=== PATIENT | female | born 1975 | race Hispanic/Latino ===

== ENCOUNTER → 2023-10-03 11:46 | Outpatient (REF) | payer OTHER, SELFPAY ==
[2023-10-03 12:45] LABS: % Basophils 0.7 % (0-2); % Eosinophils 0.8 % (0-6); % Immature Granulocytes 0.6 % (0-0.5); % Lymphocytes 45.5 % (20.5-51.1); % Monocytes 6.8 % (1.7-9.3); % Neutrophils 45.6 % (42.2-75.2); Absolute Basophils 0.1 10^3/uL (0-0.2); Absolute Eosinophils 0.1 10^3/uL (0-0.7); Absolute Immature Granulocytes 0.1 10^3/uL (0-0.05); Absolute Lymphocytes 3.9 10^3/uL (1.2-3.4); Absolute Monocytes 0.6 10^3/uL (0.1-0.6); Absolute Neutrophils 3.9 10^3/uL (1.4-6.5); Hematocrit 33.4 % (37.0-47.0); Hemoglobin 10.1 g/dL (12.0-16.0); Mean Corp Hgb Conc. 30.2 g/dL (33.0-37.0); Mean Corpuscular Hgb 19.8 pg (27.0-31.0); Mean Corpuscular Volume 65.5 fL (81.0-99.0); Mean Platelet Volume 9.2 fL (7.4-10.4); Nucleated Red Blood Cells % 0 %; Platelet Count 404 10^3/uL (130-400); Red Cell Dist. Width 16.9 % (11.5-14.5); White Blood Cell Count 8.6 10^3/uL (4.8-10.8)
[2023-10-03 13:14] LABS: ALT (SGPT) 89 U/L (0-35); AST (SGOT) 63 U/L (14-36); Albumin 4.3 g/dl (3.5-5.0); Alkaline Phosphatase 145 U/L (38-126); Blood Urea Nitrogen 8 mg/dl (7-17); Calcium 9.9 mg/dl (8.4-10.2); Carbon Dioxide 23 mmol/L (22-30); Chloride 104 mmol/L (98-107); Glucose 126 mg/dl (70-99); HDL Cholesterol 44 mg/dl; LDL Cholesterol, Calculated 123 mg/dl; Potassium 4.1 mmol/L (3.5-5.1); Sodium 136 mmol/L (135-145); Total Bilirubin 0.5 mg/dl (0.2-1.3); Total Cholesterol 198 mg/dl (50-199); Total Protein 7.4 g/dl (6.3-8.2); Triglyceride 156 mg/dl (10-149); Very Low Density Lipoprotein 31 mg/dl (0-30); eGFR > 60.00
[2023-10-03 13:21] LABS: Glycohemoglobin (HgbA1c) 7.3 % (4.0-5.6)
[2023-10-05 08:39] LABS: H. pylori Breath Test Negative (Negative)
== END ==
LOC: REG 11:46
PROVIDERS: ATTENDING PHYSICIAN Student in an Organized Health Care Education/Training Program
DX: Z00.00 Encounter for general adult medical examination without abnormal findings (principal); Z12.11 Encounter for screening for malignant neoplasm of colon; K29.50 Unspecified chronic gastritis without bleeding
CPT/HCPCS: 36415; 80053; 80061; 83013; 83036; 83735; 84443; 85025

== ENCOUNTER → 2023-10-10 12:26 | Outpatient (REF) | payer OTHER, SELFPAY | LOC: REG 12:26 | PROVIDERS: ATTENDING PHYSICIAN Student in an Organized Health Care Education/Training Program | DX: Z00.00 Encounter for general adult medical examination without abnormal findings (principal); Z12.11 Encounter for screening for malignant neoplasm of colon; K29.50 Unspecified chronic gastritis without bleeding | CPT/HCPCS: 36415; 83520 ==

== ENCOUNTER → 2023-10-31 17:08 | Outpatient (REF) | payer SELFPAY | LOC: WDC 17:08 | PROVIDERS: ATTENDING PHYSICIAN Student in an Organized Health Care Education/Training Program | DX: Z12.31 Encounter for screening mammogram for malignant neoplasm of breast (principal) | CPT/HCPCS: 77063; 77067 ==

== ENCOUNTER → 2023-11-21 18:03 | Outpatient (REF) | payer OTHER, SELFPAY ==
[2023-11-25 04:54] LABS: HPV, High Risk Not Detected; HPV, High Risk Source Cervical
== END ==
LOC: CLINIC 18:03
PROVIDERS: ATTENDING PHYSICIAN Nurse Practitioner Adult Health
DX: Z12.4 Encounter for screening for malignant neoplasm of cervix (principal)
CPT/HCPCS: 87624; G0123

== ENCOUNTER 2024-03-23 22:09 | Emergency (ER) | payer SELFPAY ==
[2024-03-23 22:14] VITALS: BP 160/74
[2024-03-23 22:40] LABS: % Eosinophils 0.7 % (0-6); % Immature Granulocytes 0.2 % (0-0.5); % Lymphocytes 29.2 % (20.5-51.1); % Monocytes 6.2 % (1.7-9.3); % Neutrophils 62.7 % (42.2-75.2); Absolute Basophils 0.1 10^3/uL (0-0.2); Absolute Eosinophils 0.1 10^3/uL (0-0.7); Absolute Lymphocytes 2.4 10^3/uL (1.2-3.4); Absolute Monocytes 0.5 10^3/uL (0.1-0.6); Absolute Neutrophils 5.2 10^3/uL (1.4-6.5); Hematocrit 34.5 % (37.0-47.0); Hemoglobin 10.3 g/dL (12.0-16.0); Mean Corp Hgb Conc. 29.9 g/dL (33.0-37.0); Mean Corpuscular Hgb 18.9 pg (27.0-31.0); Mean Corpuscular Volume 63.3 fL (81.0-99.0); Mean Platelet Volume 10.2 fL (7.4-10.4); Nucleated Red Blood Cells % 0 %; Platelet Count 340 10^3/uL (130-400); Red Blood Cell Count 5.45 10^6/uL (4.20-5.40); Red Cell Dist. Width 16.9 % (11.5-14.5); White Blood Cell Count 8.3 10^3/uL (4.8-10.8)
[2024-03-23 22:59] LABS: ALT (SGPT) 40 U/L (0-35); AST (SGOT) 33 U/L (14-36); Alkaline Phosphatase 132 U/L (38-126); Blood Urea Nitrogen 8 mg/dl (7-17); Calcium 9.5 mg/dl (8.4-10.2); Carbon Dioxide 23 mmol/L (22-30); Chloride 98 mmol/L (98-107); Glucose 407 mg/dl (70-99); Potassium 3.7 mmol/L (3.5-5.1); Sodium 135 mmol/L (135-145); Total Bilirubin 0.6 mg/dl (0.2-1.3); Total Protein 8.2 g/dl (6.3-8.2); eGFR > 60.00
[2024-03-23 23:28] LABS: TSH 1.31 uIU/ml (0.47-4.68)
[2024-03-24 01:30] VITALS: BMI 21.1
[2024-03-24 01:46] VITALS: BP 135/77
[2024-03-24 02:00] VITALS: BP 122/75
[2024-03-24 02:11] LABS: COVID-19 Antigen Negative (Negative)
[2024-03-24 03:00] VITALS: BP 107/66
--- NOTE | 2024-03-24 03:12 | ED.GENMED ---
History of Present Illness
<Modesta Holden PA-C - Last Filed: 03/24/24 04:12>
General
Chief Complaint: Dizziness
Source: patient
Exam Limitations: none
Time Seen by Provider: 03/24/24 01:22
Nursing documentation reviewed up to this point in time: agreed with
History of Present Illness
History of Present Illness:
48 y/o F dx with dm just a 1.5 months ago at the [facility] and took metformin for a month and then ran out ofher prescription and hasn't gotten it filled
here with dizziness
said that while she was in a car today aroun d8 pm she suddenly felt the room spinning and then some ringing or funny noise in L ear; she also had some nausea and vomited x 1
she says that ultimatetly after 2 hours, the idzziness has resolved
she had a similar episode last month when she got diagnosed. she says she is also very thirsty
no recent cold symptoms, head trauma, neck pain, focal weakness, cp, sob
she says she felt generally not well while the dizizness was occurring but feels better now
pt has never been diagnosed with vertigo or meniere's disease before
Past History
<Modesta Holden PA-C - Last Filed: 03/24/24 04:12>
Past History
ED Past Medical History: NIDDM
ED Past Surgical History: None
Social History
Tobacco: Non-smoker
Alcohol: None
Drug: None
Review of Systems
<Modesta Holden PA-C - Last Filed: 03/24/24 04:12>
Review of Systems
Allergies reviewed?: Yes
All Other Systems: Not applicable
Phy Exam
<HELEN Figueroa Last Filed: 03/24/24 04:12>
Physical Exam
Physical Exam:
GENERAL: Alert , in no apparent distress
head: ncat
EYE: pupils equal and reactive , eoms normal
NECK: Supple
ENT: o/p clr, mmm. tms intact, hearing prsent, slgithly diminished in L ear
no nystagmus
CARDIAC: Regular rate and rhythm .
LUNGS: Clear breath sounds bilaterally, no acute respiratory distress, no wheezes/rales/rhonchi
ABDOMEN: Soft, without focal tenderness, no r/g, no cvat, normal bowel sounds
NEUROLOGICAL: Alert and oriented, no focal neuro deficits, cn intact, finger to nose normal, strength symmetric and 5/5
SKIN: Warm and dry, skin intact.
MUSCULOSKELETAL: No edema, well perfused. neg aisha's sign
PSYCH: Normal and appropriate interaction.
YANNICK HALLPIKE NEG
Course
<Modesta Holden PA-C - Last Filed: 03/24/24 04:12>
Orders/Labs/Results
Orders:
Orders
03/23/24 22:11
ECG [Electrocardiogram (*1)] Urgent
Reason for Study: Vertigo / Dizzy
EKG- Treatment ONCE
03/23/24 22:32
Complete Blood Count/With Diff Urgent
Comprehensive Metabolic Panel Urgent
TSH Urgent
03/24/24 01:47
COVID-19 Antigen Urgent
Source: Nasal Swab
Influenza A+B Rapid Molecular Urgent
DANIEL Source: Nasal Swab
Specimen Description:
03/24/24 02:51
0.9% Sodium Chloride 1000 ml [Nss] 1,000 ml IV BOLUS
Meclizine [Antivert] 12.5 mg PO NOW STA
03/24/24 03:29
METFORMIN HCl [Glucophage] 500 mg PO NOW STA
03/24/24 03:42
BHB [B-Hydroxybutyrate] Urgent
Urinalysis Reflex To Culture Urgent
Date Specimen was Collected: 03/24/24
Time Specimen was Collected: 03:39
Urine Microscopic Reflex Cult Urgent
Urine Culture Urgent
DANIEL Source: U
Specimen Description:
Date Specimen was Collected: 03/24/24
Time Specimen was Collected: 03:39
Abnormal Lab Results
03/23/24 03/24/24 03/24/24
22:32 03:42 04:36
RBC 5.45 H 10^6/uL
(4.20-5.40)
Hgb 10.3 L g/dL
(12.0-16.0)
Hct 34.5 L %
(37.0-47.0)
MCV 63.3 L fL
(81.0-99.0)
MCH 18.9 L pg
(27.0-31.0)
MCHC 29.9 L g/dL
(33.0-37.0)
RDW 16.9 H %
(11.5-14.5)
Creatinine 0.4 L mg/dL
(0.6-1.0)
Glucose 407 H mg/dl
(70-99)
ALT 40 H U/L
(0-35)
Alkaline Phosphatase 132 H U/L
(38-126)
Urine Ketones 3+ A
(Negative)
Ur Occult Blood Reflex 1+ A
(Negative)
Urine WBC (Reflex) 11-15 A /HPF
(0-5)
Urine Bacteria (Reflex) Few A
(Negative)
Urine Glucose 4+ A
(Negative)
B-Hydroxybutyrate 2.39 H mmol/L
(0.02-0.27)
POC Glucose 240 H mg/dl
(70-99)
03/23/24 22:32
03/23/24 22:32
Vital Signs
Initial and Last Documented VS:
Initial Vital Signs
Temp Pulse Resp BP Pulse Ox
97.8 F 82 20 160/74 100
03/23/24 22:14 03/23/24 22:14 03/23/24 22:14 03/23/24 22:14 03/23/24 22:14
Last Documented Vital Signs
Temp Pulse Resp BP Pulse Ox
97.8 F 75 18 135/76 98
03/23/24 22:14 03/24/24 04:45 03/24/24 04:45 03/24/24 04:00 03/24/24 04:30
<Gosia Ewing, DO - Last Filed: 03/24/24 07:52>
Orders/Labs/Results
Orders:
Orders
03/23/24 22:11
ECG [Electrocardiogram (*1)] Urgent
Reason for Study: Vertigo / Dizzy
EKG- Treatment ONCE
03/23/24 22:32
Complete Blood Count/With Diff Urgent
Comprehensive Metabolic Panel Urgent
TSH Urgent
03/24/24 01:47
COVID-19 Antigen Urgent
Source: Nasal Swab
Influenza A+B Rapid Molecular Urgent
DANIEL Source: Nasal Swab
Specimen Description:
03/24/24 02:51
0.9% Sodium Chloride 1000 ml [Nss] 1,000 ml IV BOLUS
Meclizine [Antivert] 12.5 mg PO NOW STA
03/24/24 03:29
METFORMIN HCl [Glucophage] 500 mg PO NOW STA
03/24/24 03:42
BHB [B-Hydroxybutyrate] Urgent
Urinalysis Reflex To Culture Urgent
Date Specimen was Collected: 03/24/24
Time Specimen was Collected: 03:39
Urine Microscopic Reflex Cult Urgent
Urine Culture Urgent
DANIEL Source: U
Specimen Description:
Date Specimen was Collected: 03/24/24
Time Specimen was Collected: 03:39
Abnormal Lab Results
03/23/24 03/24/24 03/24/24
22:32 03:42 04:36
RBC 5.45 H 10^6/uL
(4.20-5.40)
Hgb 10.3 L g/dL
(12.0-16.0)
Hct 34.5 L %
(37.0-47.0)
MCV 63.3 L fL
(81.0-99.0)
MCH 18.9 L pg
(27.0-31.0)
MCHC 29.9 L g/dL
(33.0-37.0)
RDW 16.9 H %
(11.5-14.5)
Creatinine 0.4 L mg/dL
(0.6-1.0)
Glucose 407 H mg/dl
(70-99)
ALT 40 H U/L
(0-35)
Alkaline Phosphatase 132 H U/L
(38-126)
Urine Ketones 3+ A
(Negative)
Ur Occult Blood Reflex 1+ A
(Negative)
Urine WBC (Reflex) 11-15 A /HPF
(0-5)
Urine Bacteria (Reflex) Few A
(Negative)
Urine Glucose 4+ A
(Negative)
B-Hydroxybutyrate 2.39 H mmol/L
(0.02-0.27)
POC Glucose 240 H mg/dl
(70-99)
03/23/24 22:32
03/23/24 22:32
Vital Signs
Initial and Last Documented VS:
Initial Vital Signs
Temp Pulse Resp BP Pulse Ox
97.8 F 82 20 160/74 100
03/23/24 22:14 03/23/24 22:14 03/23/24 22:14 03/23/24 22:14 03/23/24 22:14
Last Documented Vital Signs
Temp Pulse Resp BP Pulse Ox
97.8 F 75 18 135/76 98
03/23/24 22:14 03/24/24 04:45 03/24/24 04:45 03/24/24 04:00 03/24/24 04:30
<Sadi Carranza Jr., JOSH-Delon - Last Filed: 03/26/24 08:21>
Orders/Labs/Results
Orders:
Orders
03/23/24 22:11
ECG [Electrocardiogram (*1)] Urgent
Reason for Study: Vertigo / Dizzy
EKG- Treatment ONCE
03/23/24 22:32
Complete Blood Count/With Diff Urgent
Comprehensive Metabolic Panel Urgent
TSH Urgent
03/24/24 01:47
COVID-19 Antigen Urgent
Source: Nasal Swab
Influenza A+B Rapid Molecular Urgent
DANIEL Source: Nasal Swab
Specimen Description:
03/24/24 02:51
0.9% Sodium Chloride 1000 ml [Nss] 1,000 ml IV BOLUS
Meclizine [Antivert] 12.5 mg PO NOW STA
03/24/24 03:29
METFORMIN HCl [Glucophage] 500 mg PO NOW STA
03/24/24 03:42
BHB [B-Hydroxybutyrate] Urgent
Urinalysis Reflex To Culture Urgent
Date Specimen was Collected: 03/24/24
Time Specimen was Collected: 03:39
Urine Microscopic Reflex Cult Urgent
Urine Culture Urgent
DANIEL Source: U
Specimen Description:
Date Specimen was Collected: 03/24/24
Time Specimen was Collected: 03:39
Abnormal Lab Results
03/23/24 03/24/24 03/24/24
22:32 03:42 04:36
RBC 5.45 H 10^6/uL
(4.20-5.40)
Hgb 10.3 L g/dL
(12.0-16.0)
Hct 34.5 L %
(37.0-47.0)
MCV 63.3 L fL
(81.0-99.0)
MCH 18.9 L pg
(27.0-31.0)
MCHC 29.9 L g/dL
(33.0-37.0)
RDW 16.9 H %
(11.5-14.5)
Creatinine 0.4 L mg/dL
(0.6-1.0)
Glucose 407 H mg/dl
(70-99)
ALT 40 H U/L
(0-35)
Alkaline Phosphatase 132 H U/L
(38-126)
Urine Ketones 3+ A
(Negative)
Ur Occult Blood Reflex 1+ A
(Negative)
Urine WBC (Reflex) 11-15 A /HPF
(0-5)
Urine Bacteria (Reflex) Few A
(Negative)
Urine Glucose 4+ A
(Negative)
B-Hydroxybutyrate 2.39 H mmol/L
(0.02-0.27)
POC Glucose 240 H mg/dl
(70-99)
03/23/24 22:32
03/23/24 22:32
Vital Signs
Initial and Last Documented VS:
Initial Vital Signs
Temp Pulse Resp BP Pulse Ox
97.8 F 82 20 160/74 100
03/23/24 22:14 03/23/24 22:14 03/23/24 22:14 03/23/24 22:14 03/23/24 22:14
Last Documented Vital Signs
Temp Pulse Resp BP Pulse Ox
97.8 F 75 18 135/76 98
03/23/24 22:14 03/24/24 04:45 03/24/24 04:45 03/24/24 04:00 03/24/24 04:30
<Modesta Holden PA-C - Last Filed: 03/24/24 04:12>
MDM/Problems Addressed
Differential Diagnosis Includes:
VERTIGO, MENIERE'S, LABYRYTHRITIS, HYPERGLYCEMIA, CVA
MDM/Problems Addressed:
48 Y/O F
NIDDM
was only on metformin for 1 mo, ran out and stopped about 2 weeks ago and hasn't had new rx
says she feltlike this previously
sudden dizziness today while i the car, lasting 2 hours, rooms spinning, vomiting
it resolved
she now just feels thirsty and has subtle L hearing loss
no h/o menieres'
yannick hallpike neg
sypmtoms are better
neuro exam normal
flu/covid neg
she is hyperglycemic 400s
normal AG
ekg nonischemic
will treat with meclizine but suspect her symptom are hyperglycemia +- meniere's
recommend close outpatient fu
pt's corrected sodium is 142
could mention salt restriction
start metformin
<Sadi Carranza Jr., PA-C - Last Filed: 03/26/24 08:21>
*Critical Care Note
Total Time (30-74mins, 75-104mins- exclusive of procedures): Not Applicable
<Sadi Carranza Jr., PA-C - Last Filed: 03/26/24 08:21>
Update Note
Update Note:
Patient was contacted better positive urine culture and was sent antibiotics to her pharmacy.
ED Attending Note
<Modesta Holden PA-C - Last Filed: 03/24/24 04:12>
-
Portions of this chart may have been created with voice recognition software.� Occasional wrong word or��sound alike� substitutions may have occurred due to the inherent limitations of voice recognition software.
<Gosia Ewing, DO - Last Filed: 03/24/24 07:52>
ED Attending Note
Patient seen and examined by attending physician: Yes
I performed a history and physical exam of patient and discussed management with resident, I reviewed resident's note and agree with documented findings and plan of care.: Yes
ED Attending Note:
04:45
Patient feeling markedly improved after IV fluids.
No further dizziness.
Repeat Accu-Chek 240.
Beta hydroxybutyrate mildly elevated but chemistries are reassuring without acidosis on electrolytes.
Clinically well in appearance. Without tachycardia nor tachypnea. Nothing to suggest DKA.
I suspect poorly controlled [id number] onset diabetes.
Will discharge to home with plan for follow-up with our free clinic.
Prescription for metformin 500 mg to be taken twice daily has been provided as well as a prescription for meclizine 12.5 mg to be taken 3 times daily as needed for dizziness.
Discussed importance of staying well-hydrated on a daily basis.
Return precautions discussed.
Discharge Plan
Departure
Patient Disposition: Home (Routine Discharge)
Date of Disposition: 03/24/24
Time of Disposition: 04:44
Patient with high blood pressure during this ER visit?: No
Condition: Good
Discharge Problem:
Diabetes
Instructions: Vertigo (a Type of Dizziness) (DC), High blood sugar in adults - ED discharge instructions
Prescriptions:
New
metformin 500 mg tablet
500 mg PO BIDWMEAL Qty: 60 0RF
meclizine 12.5 mg tablet
12.5 mg PO TID PRN (Reason: dizziness) Qty: 10 0RF
amoxicillin 875 mg tablet
875 mg PO BID 5 Days Qty: 10 0RF
Referrals:
[facility] - Call in 1-3 days for appt
NONE,* [Family Provider] -
Activity Restrictions/Additional Instructions:
YOUR DIZZINESS MAY BE FROM AN INNER EAR PROBLEM OR FROM SOMETHING CALLED MENIERE'S DISEASE. YOU SHOULD WATCH YOUR SALT INTAKE IN YOUR DIET
TAKE MECLIZINE 12.5 MG 2 TIMES A DAY NEEDED FOR DIZZINESS.
IF YOU DO NOT HAVE DIZZINESS THEN YOU DO NOT NEED TO TAKE IT.
YOU NEED TO FOLLOW UP WITH [facility] FOR YOUR BLOOD SUGARS
TAKE METFORMIN TWICE A DAY WITH YOUR MEALS
RETURN FOR: SEVERE SYMPTOMS, PASSING OUT, VOMITING, WEAKNESS, HEADACHE, ETC.
GUARDADO MAREADO PUEDE SER DEBIDO A UN PROBLEMA DEL O�DO INTERNO O A ALGO LLAMADO ENFERMEDAD DE MENIERE. DEBES CUIDAR TU CONSUMO DE LAVON EN TU DIETA
SOFIE MECLIZINA 12,5 MG 2 VECES AL D�A SEG�N LO NECESITE PARA LOS MAREOS.
SI NO TIENE MAREOS, NO ES NECESARIO TOMARLO.
NECESITA HACER UN SEGUIMIENTO CON LA CL�ENEDINARiccardo MOORE PARA IVÁN AZUCARES EN LA KALEB
SOFIE METFORMINA DOS VECES AL D�A CON LAS COMIDAS
REGRESAR POR: S�NTOMAS SEVEROS, DESMAYO, V�MITOS, DEBILIDAD, DOLOR DE MARIANNE, ETC.
Interventions
Interventions:
*Risk Screen - Suicide Last Done: 03/24/24 01:30
*General Assessment Last Done: 03/24/24 01:30
*Neglect/Abuse Screening Last Done: 03/24/24 01:30
ED- Fall Risk Assessment Last Done: 03/24/24 01:30
*ED COVID-19 Vaccine History Last Done: 03/24/24 01:30
*Nursing Disposition Last Done: 03/24/24 04:50
ED- Neurological Assessment Last Done: 03/24/24 01:30
ED- Cardiac Assessment Last Done: 03/24/24 01:30
ED Swallowing Screen Last Done: 03/24/24 02:24
Discharge Date and Time
Discharge Date/Time: 03/24/24 04:50
Print Language: LATVIAN
[2024-03-24] MEDS: ANTIVERT 12.5 MG PO (03:29)
[2024-03-24] MEDS: NSS 1000 IV (03:30)
[2024-03-24] MEDS: GLUCOPHAGE 500 MG PO (03:47)
[2024-03-24 03:48] LABS: Urine Albumin Negative (Neg - Trace); Urine Bilirubin Negative (Negative); Urine Character Clear (Clear); Urine Color Yellow; Urine Glucose 4+ (Negative); Urine Leukocyte Negative (Negative); Urine Nitrite Negative (Negative); Urine Occult Blood 1+ (Negative); Urine Urobilinogen Negative (Neg - 1+)
[2024-03-24 03:59] LABS: Urine Ketone 3+ (Negative)
[2024-03-24 04:00] VITALS: BP 135/76
[2024-03-24 04:24] LABS: B-Hydroxybutyrate 2.39 mmol/L (0.02-0.27)
[2024-03-24 04:38] LABS: Glucose - Point of Care 240 mg/dl (70-99)
[2024-03-24 05:12] LABS: Urine Squamous Cell >30 /LPF (Few)
[2024-03-24 05:13] LABS: Urine Bacteria Few (Negative); Urine Red Blood Cell 0-2 /HPF (0-2)
== END 2024-03-24 04:50 | disposition home or self-care (01) ==
LOC: EMR 22:09
PROVIDERS: Emergency Medicine; Physician Assistant; EMERGENCY PHYSICIAN Emergency Medicine
DX: R42 Dizziness and giddiness (principal); E11.65 Type 2 diabetes mellitus with hyperglycemia; H93.12 Tinnitus, left ear
CPT/HCPCS: 99283; 80053; 81003; 81015; 82010; 82962; 84443; 85025; 87077; 87086; 87147; 87502; 87811; 93005

== ENCOUNTER 2024-03-26 20:25 | Emergency (ER) | payer SELFPAY ==
[2024-03-26 20:27] VITALS: BP 114/83
[2024-03-26 21:08] LABS: ALT (SGPT) 34 U/L (0-35); AST (SGOT) 30 U/L (14-36); Albumin 4.8 g/dl (3.5-5.0); Alkaline Phosphatase 133 U/L (38-126); Blood Urea Nitrogen 7 mg/dl (7-17); Calcium 10.4 mg/dl (8.4-10.2); Carbon Dioxide 21 mmol/L (22-30); Chloride 97 mmol/L (98-107); Glucose 361 mg/dl (70-99); Potassium 3.8 mmol/L (3.5-5.1); Sodium 132 mmol/L (135-145); Total Bilirubin 0.6 mg/dl (0.2-1.3); Total Protein 7.4 g/dl (6.3-8.2); eGFR > 60.00
[2024-03-26 21:10] LABS: % Basophils 0.9 % (0-2); % Immature Granulocytes 0.4 % (0-0.5); % Lymphocytes 55.8 % (20.5-51.1); % Monocytes 5.9 % (1.7-9.3); Absolute Basophils 0.1 10^3/uL (0-0.2); Absolute Eosinophils 0.1 10^3/uL (0-0.7); Absolute Lymphocytes 4.3 10^3/uL (1.2-3.4); Absolute Monocytes 0.5 10^3/uL (0.1-0.6); Absolute Neutrophils 2.8 10^3/uL (1.4-6.5); Hematocrit 34.3 % (37.0-47.0); Hemoglobin 10.2 g/dL (12.0-16.0); Mean Corp Hgb Conc. 29.7 g/dL (33.0-37.0); Mean Corpuscular Hgb 18.6 pg (27.0-31.0); Mean Corpuscular Volume 62.7 fL (81.0-99.0); Mean Platelet Volume 9.8 fL (7.4-10.4); Nucleated Red Blood Cells % 0.3 %; Platelet Count 355 10^3/uL (130-400); Red Blood Cell Count 5.47 10^6/uL (4.20-5.40); Red Cell Dist. Width 17.3 % (11.5-14.5); White Blood Cell Count 7.8 10^3/uL (4.8-10.8)
[2024-03-26 21:15] LABS: Troponin I < 0.012 ng/ml
--- NOTE | 2024-03-26 23:54 | ED.GENMED ---
History of Present Illness
General
Chief Complaint: Abdominal Symptoms
Time Seen by Provider: 03/26/24 23:23
History of Present Illness
History of Present Illness:
Patient is a 48-year-old woman with history of diabetes presenting to the emergency department with dizziness. Patient states that she was here a few days ago and diagnosed with vertigo. She states that the symptoms have reoccurred. She states
that she has been taking meclizine which has helped. She states that today she has been hearing ringing in her left ear and has had a mild headache. She describes room as a spinning sensation. Secondary to a she did have an episode of nausea.
After that she did have a burning sensation and worsening reflux in the back of her throat. No fevers or chills. No chest pain. No difficulty breathing. No numbness tingling. No weakness. No difficulty ambulating.
Past History
Past History
ED Past Medical History: NIDDM
ED Past Surgical History: None
Social History
Tobacco: Non-smoker
Alcohol: None
Drug: None
Phy Exam
Physical Exam
Physical Exam:
GENERAL: in no acute distress
HEENT: normocephalic, extraocular movements intact, moist oral mucosa, left middle ear effusion
NECK: normal inspection
RESPIRATORY: no respiratory distress, clear to auscultation bilaterally
CARDIOVASCULAR: regular rate and rhythm
ABDOMEN/: soft, non-distended, non-tender to palpation, no rebound or guarding
EXTREMITIES: non-tender, no edema/swelling
NEUROLOGIC: awake and alert, moves all extremities, equal 5 in upper and lower extremities, neurovascularly intact, normal [id number]
SKIN: warm
Course
Orders/Labs/Results
Orders:
Orders
03/26/24 20:33
Electrocardiogram (*1) Urgent
Reason for Study: Chest Pain
EKG- Treatment ONCE
03/26/24 20:42
Complete Blood Count/With Diff Urgent
Comprehensive Metabolic Panel Urgent
Troponin I Urgent
03/26/24 23:53
Ibuprofen [Motrin] 800 mg PO NOW STA
Meclizine [Antivert] 25 mg PO NOW STA
Abnormal Lab Results
03/26/24
20:42
RBC 5.47 H 10^6/uL
(4.20-5.40)
Hgb 10.2 L g/dL
(12.0-16.0)
Hct 34.3 L %
(37.0-47.0)
MCV 62.7 L fL
(81.0-99.0)
MCH 18.6 L pg
(27.0-31.0)
MCHC 29.7 L g/dL
(33.0-37.0)
RDW 17.3 H %
(11.5-14.5)
Absolute Lymphs (auto) 4.3 H 10^3/uL
(1.2-3.4)
Neutrophils % 36.0 L %
(42.2-75.2)
Lymphocytes % 55.8 H %
(20.5-51.1)
Sodium 132 L mmol/L
(135-145)
Chloride 97 L mmol/L
(98-107)
Carbon Dioxide 21 L mmol/L
(22-30)
Creatinine 0.3 L mg/dL
(0.6-1.0)
Glucose 361 H mg/dl
(70-99)
Calcium 10.4 H mg/dl
(8.4-10.2)
Alkaline Phosphatase 133 H U/L
(38-126)
03/26/24 20:42
03/26/24 20:42
Vital Signs
Initial and Last Documented VS:
Initial Vital Signs
Temp Pulse Resp BP Pulse Ox
98.2 F 98 16 114/83 100
03/26/24 20:27 03/26/24 20:27 03/26/24 20:27 03/26/24 20:27 03/26/24 20:27
Last Documented Vital Signs
Temp Pulse Resp BP Pulse Ox
98.2 F 78 18 129/75 100
03/26/24 20:27 03/27/24 00:11 03/27/24 00:11 03/27/24 00:11 03/27/24 00:11
MDM/Problems Addressed
Differential Diagnosis Includes:
Patient is a 48-year-old female presenting to the emergency department with dizziness. Vitals unremarkable and exam is reassuring. Dizziness is likely peripheral vertigo (labyrinthisis vs meniere). It is reassuring that she does not have any
neurological deficits. Meclizine has helped. Will trial that here as well as give her some ibuprofen. Could be the beginnings of a viral illness especially with the middle ear effusion. I did have a long discussion with patient about the
antibiotics that were sent over for her positive urine culture. Patient was unaware of this. I did emphasize importance of picking up the antibiotics from her pharmacy. We also discussed CT scan. However given that patient does not have any
neurological deficits and the dizziness is provoked with sudden on and off with the ear finding after shared decision making we will hold off.
*Critical Care Note
Total Time (30-74mins, 75-104mins- exclusive of procedures): Not Applicable
Update Note
Update Note:
On reevaluation patient's symptoms have improved. I did emphasize again the importance of taking the urine infection antibiotic as well as treating the congestion. Patient will follow-up with ENT if symptoms persist after this episode. All
questions answered. Will discharge at this time.
ED Attending Note
-
Portions of this chart may have been created with voice recognition software.� Occasional wrong word or��sound alike� substitutions may have occurred due to the inherent limitations of voice recognition software.
Discharge Plan
Departure
Patient Disposition: Home (Routine Discharge)
Date of Disposition: 03/27/24
Time of Disposition: 01:02
Patient with high blood pressure during this ER visit?: No
Discharge Problem:
Vertigo, Middle ear effusion
Instructions: Labyrinthitis, Vertigo ED
Prescriptions:
No Action
metformin 500 mg tablet
500 mg PO BIDWMEAL Qty: 60 0RF
meclizine 12.5 mg tablet
12.5 mg PO TID PRN (Reason: dizziness) Qty: 10 0RF
amoxicillin 875 mg tablet
875 mg PO BID 5 Days Qty: 10 0RF
Referrals:
NONE,* [Family Provider] -
Juwan Veliz MD [Active] -
Activity Restrictions/Additional Instructions:
Your symptoms are because of a viral infection. Please follow up with ENT doctor if the ringing in your ears and dizziness persists. Please take the antibiotics for your urine infection. Please use a nasal saline spray, saline rinses, and steam
showers to help with the congestion.
Kitty s�ntomas se deben a katheryn infecci�n viral. Danni un seguimiento con un otorrinolaring�logo si el zumbido en los o�dos y los mareos persisten. [place] antibi�ticos para gallardo infecci�n de orina. Utilice un aerosol salino nasal, enjuagues salinos y duchas
de vapor para ayudar con la congesti�n.
Interventions
Interventions:
*Risk Screen - Suicide Last Done: 03/26/24 20:27
*General Assessment Last Done: 03/27/24 00:13
*Neglect/Abuse Screening Last Done: 03/26/24 20:27
*ED COVID-19 Vaccine History Last Done: 03/27/24 00:12
Discharge Date and Time
Print Language: [place]
[2024-03-27 00:10] VITALS: BMI 26.5
[2024-03-27 00:11] VITALS: BP 129/75
[2024-03-27] MEDS: MOTRIN 800 MG PO (00:14)
[2024-03-27] MEDS: ANTIVERT 25 MG PO (00:16)
== END 2024-03-27 01:28 | disposition home or self-care (01) ==
LOC: EMR 20:25
PROVIDERS: Emergency Medicine; EMERGENCY PHYSICIAN Student in an Organized Health Care Education/Training Program
DX: R42 Dizziness and giddiness (principal); H92.01 Otalgia, right ear; R51.9 Headache, unspecified; E11.9 Type 2 diabetes mellitus without complications; K21.9 Gastro-esophageal reflux disease without esophagitis
CPT/HCPCS: 99283; 80053; 84484; 85025; 93005

== ENCOUNTER → 2024-06-06 12:19 | Outpatient (REF) | payer OTHER, SELFPAY | LOC: MRI 3T 12:19 | PROVIDERS: ATTENDING PHYSICIAN Nurse Practitioner Adult Health | DX: H91.92 Unspecified hearing loss, left ear (principal) | CPT/HCPCS: 70553; A9575 ==

== ENCOUNTER → 2024-11-20 10:11 | Outpatient (REF) | payer OTHER, SELFPAY ==
[2024-11-20 10:57] LABS: Hematocrit 42.4 % (37.0-47.0); Hemoglobin 14.2 g/dL (12.0-16.0); Mean Corp Hgb Conc. 33.5 g/dL (33.0-37.0); Mean Corpuscular Volume 79.4 fL (81.0-99.0); Platelet Count 274 10^3/uL (130-400); Red Cell Dist. Width 14.6 % (11.5-14.5)
[2024-11-20 11:51] LABS: ALT (SGPT) 30 U/L (0-35); AST (SGOT) 25 U/L (14-36); Albumin 4.6 g/dl (3.5-5.0); Alkaline Phosphatase 123 U/L (38-126); Blood Urea Nitrogen 11 mg/dl (7-17); Calcium 9.8 mg/dl (8.4-10.2); Carbon Dioxide 26 mmol/L (22-30); Chloride 103 mmol/L (98-107); Glucose 327 mg/dl (70-99); HDL Cholesterol 53 mg/dl; Iron 69 ug/dl (37-170); LDL Cholesterol, Calculated 138 mg/dl; Potassium 4.1 mmol/L (3.5-5.1); Sodium 135 mmol/L (135-145); Total Protein 7.7 g/dl (6.3-8.2); Very Low Density Lipoprotein 34 mg/dl (0-30); eGFR > 60.00
[2024-11-20 12:00] LABS: Total Iron Binding Capacity 468 ug/dl (265-497)
[2024-11-20 12:41] LABS: Microalbumin, Random Urine 2.2 mg/dl (0.6-1.7)
[2024-11-20 12:56] LABS: Glycohemoglobin (HgbA1c) 14.0 % (4.0-5.6)
[2024-11-20 13:04] LABS: Microalb - Urine Creatinine 83.100 mg/dl
[2024-11-20 13:14] LABS: Ferritin 7.8 ng/ml (11.1-264.0)
[2024-11-20 13:28] LABS: Vitamin B12 736 pg/ml (239-931)
== END ==
LOC: CLINIC 10:11
PROVIDERS: ATTENDING PHYSICIAN Nurse Practitioner Adult Health
DX: E11.9 Type 2 diabetes mellitus without complications (principal); D64.9 Anemia, unspecified
CPT/HCPCS: 36415; 80053; 80061; 82043; 82570; 82607; 82728; 83036; 83540; 83550; 85027

== ENCOUNTER → 2025-02-16 10:43 | Outpatient (REF) | payer OTHER, SELFPAY ==
[2025-02-16 11:53] LABS: Microalb - Urine Creatinine 69.500 mg/dl
[2025-02-16 11:56] LABS: ALT (SGPT) 35 U/L (0-35); AST (SGOT) 31 U/L (14-36); Albumin 4.6 g/dl (3.5-5.0); Alkaline Phosphatase 95 U/L (38-126); Blood Urea Nitrogen 17 mg/dl (7-17); Calcium 9.7 mg/dl (8.4-10.2); Carbon Dioxide 25 mmol/L (22-30); Chloride 105 mmol/L (98-107); Glucose 80 mg/dl (70-99); Potassium 4.1 mmol/L (3.5-5.1); Sodium 139 mmol/L (135-145); Total Protein 7.9 g/dl (6.3-8.2); eGFR > 60.00
[2025-02-16 11:58] LABS: Microalbumin, Random Urine 0.6 mg/dl (0.6-1.7)
[2025-02-16 12:04] LABS: Glycohemoglobin (HgbA1c) 6.5 % (4.0-5.9)
== END ==
LOC: REG 10:43
PROVIDERS: ATTENDING PHYSICIAN Nurse Practitioner Adult Health
DX: R80.9 Proteinuria, unspecified (principal); E11.9 Type 2 diabetes mellitus without complications
CPT/HCPCS: 36415; 80053; 82043; 82570; 83036